=== PATIENT | male | born 1960 | race Caucasian/White ===

== ENCOUNTER 2017-04-27 08:56 | Day surgery (SDC) | payer BC ==
[~2017-04-27 08:56] MED LIST: Lactated Ringers 1,000 ML IV SCH; Sodium Chloride 0.9% 10 ML Syringe FLUSH PRN
[2017-04-27] MEDS ORDERED: fentaNYL 100 MCG/2 ML SDV ONE ×2 (09:50→09:53)
[2017-04-27] MEDS ORDERED: Midazolam 1 MG/ML 2 ML SDV ONE ×2 (09:50→09:53)
[2017-04-27] MEDS ORDERED: Propofol 200 MG/20 ML SDV ONE ×2 (09:51→09:53)
[2017-04-27] MEDS ORDERED: Lidocaine 2% 5 ML SDV ONE (09:53)
--- NOTE | 2017-04-27 09:53 | PCM.PN ---
- General Info Date of Service: 04/27/17 - Review of Systems Systems Review Comment:: 57-year-old male referred by Jhony Bruce for EGD and colonoscopy. He has a history of GERD long-term use of PPI agents. He also has a history of colon polyps and it has been more than 10 years since his last colonoscopy. I have discussed the proposed colonoscopy with the patient. He understands indications and risks and agrees to proceed accepting these risks. His recent history and physical is reviewed and there is no significant health-related changes since that time. - Patient Data Vitals - Most Recent: Last Vital Signs Temp 97.8 F 04/27/17 09:09 Pulse 113 H 04/27/17 09:09 Resp 20 04/27/17 09:09 BP 138/95 H 04/27/17 09:09 Pulse Ox 96 04/27/17 09:09 Weight - Most Recent: 95.254 kg Med Orders - Current: Current Medications Lactated Ringer's (Ringers, Lactated) 1,000 mls @ 125 mls/hr IV ASDIRECTED [facility] Last Admin: 04/27/17 09:18 Dose: 125 mls/hr Sodium Chloride (Saline Flush) 10 ml FLUSH ASDIRECTED PRN PRN Reason: Keep Vein Open - Problem List Review Problem List Initiated/Reviewed/Updated: Yes - Assessment Assessment:: GERD History of colon polyps - Plan Plan:: EGD and colonoscopy
--- NOTE | 2017-04-27 10:43 | PCM.OPNOTE ---
- General Post-Op/Procedure Note Date of Surgery/Procedure: 04/27/17 Operative Procedure(s): EGD with biopsy. Colonoscopy with polypectomy Findings: Minimal reflux esophagitis at GE junction Small rectal polyp Moderate left colon diverticulosis Pre Op Diagnosis: GERD. History of colon polyps Post-Op Diagnosis: GERD. Rectal polyp. Diverticulosis Anesthesia Technique: [facility] – [place], [place] Primary Surgeon: Brenton Delgado Pathology: Biopsies of GE junction and antrum Rectal polyp Output, Urine Amount: 0 EBL in mLs: 2 Complications: None Condition: Good Free Text/Narrative:: Intake & Output 04/26/17 04/27/17 04/27/17 22:59 06:59 14:59 Intake Total 700 Balance 700
--- NOTE | 2017-04-27 15:00 | OR ---
Date of Procedure: 04/27/2017 PREOPERATIVE DIAGNOSES: 1. Gastroesophageal reflux disease. 2. History of colon polyps. POSTOPERATIVE DIAGNOSES: 1. Gastroesophageal reflux disease. 2. Rectal polyp. 3. Left colon diverticulosis. OPERATIONS PERFORMED: Esophagogastroduodenoscopy with biopsy and colonoscopy with polypectomy. INDICATIONS FOR SURGERY: This 57-year-old male has a longstanding history of GERD like symptoms. He has been using a PPI agent for an extended period of time. He also has a known history of colon polyps, and it has been several years since his last colonoscopy. FINDINGS: On upper endoscopy, the patient has a mild degree of irregularity at the GE junction with minimal inflammation. The remainder of the esophagus, stomach, and the duodenum appeared normal. On colonoscopy, there is a 6 mm semipedunculated polyp noted in the rectum, 2 cm from the anal verge. The patient also has a moderate degree of diverticulosis which extends throughout the majority of the left colon, but does not appear to be acutely inflamed or otherwise complicated. The exam was, otherwise, normal. PROCEDURE IN DETAIL: The patient was taken to the operating room. He was given intravenous sedation, and with him in the left lateral decubitus position, the esophagus was intubated with the Olympus gastroscope. It was carefully advanced under direct visualization through the esophagus, stomach, and duodenum to the fourth portion. Careful examination of the duodenum was performed, and the scope was withdrawn back into the stomach where biopsies are taken randomly of the antrum to rule out H. pylori. Full examination including retroflexed examination of the fundus was performed. The GE junction was carefully examined. Biopsies at the GE junction were also taken. The esophagus was then examined as the scope was withdrawn, and attention was turned to colonoscopy. Digital rectal exam was performed showing no rectal masses. The Olympus colonoscope was inserted into the rectum, and retroflexed examination of the rectal canal was performed. The above-described rectal polyp was identified. This was removed with a cautery snare and retrieved into a polyp trap. The scope was then carefully advanced under direct visualization through the entire length of the colon until the cecum was reached. Cecal acquisition is confirmed by noting the normal internal cecal anatomy including the appendiceal orifice and ileocecal valve. The light was also noted to transilluminate the abdominal wall in the right lower quadrant. After carefully examining the cecum, the scope was slowly withdrawn sequentially re-examining the colonic segments until the entire colon and rectum have been fully examined. The scope was then removed, and the patient was taken from the operating room in satisfactory condition. ESTIMATED BLOOD LOSS: 2 mL. COMPLICATIONS: None. PROGNOSIS: Good. RONIT Delgado MD /[id number]
[2017-04-27 16:24] VITALS: BP 117/78
== END 2017-04-27 11:42 | disposition home or self-care (01) ==
LOC: LL.SDS 08:56
PROVIDERS: ATTEND Surgery
DX: Z12.11 Encounter for screening for malignant neoplasm of colon (principal); D12.8 Benign neoplasm of rectum; K29.50 Unspecified chronic gastritis without bleeding; I10 Essential (primary) hypertension; N40.0 Benign prostatic hyperplasia without lower urinary tract symptoms; K21.9 Gastro-esophageal reflux disease without esophagitis; Z86.010 Personal history of colon polyps; Z88.1 Allergy status to other antibiotic agents; Z88.8 Allergy status to other drugs, medicaments and biological substances; Z79.899 Other long term (current) drug therapy
CPT/HCPCS: J2250; J2704; J3010; J7120

== ENCOUNTER 2020-01-01 15:51 | Emergency (ER) | payer BC ==
[2020-01-01 16:00] VITALS: BP 158/71; PULSE 106
[2020-01-01] MEDS ORDERED: Sodium Chloride 0.9% 10 ML Syringe FLUSH PRN (16:23)
[2020-01-01] MEDS ORDERED: Famotidine 20 MG/2 ML SDV IVPUSH ONE (16:23)
--- NOTE | 2020-01-01 16:23 | EDM.PDOC ---
ED HPI GENERAL MEDICAL PROBLEM - General Chief Complaint: General Stated Complaint: chills, body aches, cough Time Seen by Provider: 01/01/20 16:05 Source of Information: Reports: Patient, Old Records ([facility] chart/EMR) History Limitations: Reports: No Limitations - History of Present Illness INITIAL COMMENTS - FREE TEXT/NARRATIVE: The patient drove himself to the emergency room via private automobile for evaluation of fever and chills with temperature of 99.8 degrees 1 hour prior to arrival. He has not taken any antipyretic medications today, however he has had Tylenol and ibuprofen during the last couple of days. Note 2-day history of similar symptoms and 3/10 diffuse arthralgias with additional mild dyspnea with exertion. 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 He has not gotten his influenza booster this season. Patient has had some mild anorexia during the last 3 days with a loose bowel movement this morn ing with similar bowel movements during the last couple of days. He has had some mild nasal drainage however no cough. The patient denies any chest pain/pressure, heart flutter, dizziness, orthostasis, orthopnea, diaphoresis, paresthesias, recent decreased exercise tolerance, or any other anginal-type symptoms. No recent history of abdominal pain, heartburn, nausea, diarrhea, melena, gross hematochezia, or any food intolerance, including fatty foods, etc.. He denies any gross hematuria, colic, or other UTI symptoms. No history of recent headaches, visual changes, diplopia, change in mental status, or other change in neurological status. Onset: Gradual Onset Date: 12/30/19 Duration: Constant, Getting Worse Location: Reports: Generalized Quality: Reports: Ache, Same as Previous Episode Severity: Mild Improves with: Reports: None Worsens with: Reports: None Context: Reports: Other (As above). Denies: Sick Contact, Trauma Associated Symptoms: Reports: Fever/Chills, Loss of Appetite, Shortness of Breath. Denies: Confusion, Chest Pain, Cough, cough w sputum, Diaphoresis, Headaches, Malaise, Nausea/Vomiting, Rash, Seizure, Syncope, Weakness Treatments MANAGER PROCUREMENT: Reports: Acetaminophen, NSAIDS bodyaches Pain Score (Numeric/FACES): 3 - Related Data Allergies Allergy/AdvReac Type Severity Reaction Status Date / Time hydrocodone Allergy Severe Nausea and Verified 01/01/20 16:01 Vomiting erythromycin base Allergy unknown Verified 01/01/20 16:01 Home Meds: Home Meds Omeprazole [Prilosec] 20 mg PO QAM 04/24/15 [History] Fluticasone Propionate [Flonase] 1 spray NASBOTH BID 05/14/15 [History] Chlorthalidone 25 mg PO DAILY PRN 04/26/17 [History] Ascorbate Calcium [Vitamin C] 500 mg PO DAILY 04/27/17 [History] Calcium Carbonate [Calcium] 500 mg PO DAILY 04/27/17 [History] Glucosam/Chond-MSM 2/C/D3/Bo [Dvufrsvxfn-Pablxdtbrye-GFX] 1 each PO DAILY 04/27/17 [History] Doxycycline [Vibramycin] 100 mg PO BID #20 cap 01/01/20 [Rx] guaiFENesin/Dextromethorphan [Mucinex Dm ER 600-30 mg Tablet] 1 each PO BID #20 tab.er.12h 01/01/20 [Rx] lisinopriL [Lisinopril] 10 mg PO DAILY 01/01/20 [History] Past Medical History HEENT History: Reports: Allergic Rhinitis, Sinusitis. Denies: Cataract, Glaucoma, Hard of Hearing, Impaired Vision, Macular Degeneration, Otitis Media Other HEENT History: He wears bifocals Cardiovascular History: Reports: Arrhythmia, High Cholesterol, Hypertension. Denies: Afib, Aneurysm, Blood Clots/VTE/DVT, CAD, Heart Failure, Heart Murmur, AL, PVD, Syncope Other Cardiovascular History: Dyslipidemia with secondary fatty liver, PACs, PVCs, short NC interval, and occasional nonspecific tachycardia Respiratory History: Reports: Bronchitis, Recurrent, COPD, Intubation, Previous, Other (See Below). Denies: Asthma, Intubation, Difficult, PE, Pneumonia, Recurrent, Pneumothorax, Sleep Apnea, TB Other Respiratory History: COPD by chest x-ray with previous history of tobacco use and no current medical therapy required Gastrointestinal History: Reports: Cholelithiasis, Colon Polyp, Diverticulosis, Fatty Liver, Gastritis, GERD. Denies: Chronic Constipation, Chronic Diarrhea, GI Bleed, Hiatal Hernia, Inflammatory Bowel Disease, Irritable Bowel Syndrome, Jaundice, PUD Other Gastrointestinal History: Bilateral inguinal hernias requiring surgeries as below, previously treated H. pylori infection, fatty liver secondary to dyslipidemia, esophagitis by EGD; history of tubular adenoma/rectal polyp at time of last colonoscopy on 04/27/2017 with previous recurrent hyperplastic colonic polyps, mild sigmoid colitis by colonoscopy, diverticulosis of the descending and sigmoid colon. Benign hepatic cysts Genitourinary History: Reports: BPH. Denies: Acute Renal Failure, Chronic Renal Insuffiency, Renal Calculus, Retention, Urinary, STD, Urinary Incontinence, UTI, Recurrent Other Genitourinary History: Benign left renal cysts by CT scan Musculoskeletal History: Reports: Arthritis, Fracture, Osteoarthritis, Other (See Below). Denies: Amputation, Back Pain, Chronic, Gout, Neck Pain, Chronic, RA, SLE Other Musculoskeletal History: Left ankle fracture in August 1999, left thumb fracture in about 1998 Neurological History: Reports: Headaches, Chronic, Other (See Below). Denies: Cerebral Aneurysms, CVA, Migraines, MS, Neuropathy, Peripheral, Parkinson's, Seizure, TIA Other Neuro History: Tension headaches Psychiatric History: Reports: Anxiety, Depression. Denies: Abuse, Victim of, ADD, ADHD, Addiction, Panic Attack, Psych Hospitalization(s), Suicide Attempt, Suicidal Ideation Endocrine/Metabolic History: Reports: Obesity/BMI 30+. Denies: Diabetes, Type I, Diabetes, Type II, Hypothyroidism, IDDM Hematologic History: Reports: None. Denies: Anemia, Blood Transfusion(s), Iron Deficiency Immunologic History: Reports: None. Denies: AIDS, HIV, SLE Oncologic (Cancer) History: Reports: None. Denies: Basal Cell Carcinoma, Hodgkin's Lymphoma, Leukemia, Lymphoma, Malignant Melanoma, Non-Hodgkin's Lymphoma, Squamous Cell Carcinoma Dermatologic History: Reports: None. Denies: Eczema, Psoriasis - Infectious Disease History Infectious Disease History: Reports: Chicken Pox, Helicobacter Pylori. Denies: C-Difficile, Measles, Meningitis, Mononucleosis, MRSA, Mumps, Pertussis (Whooping Cough), Rheumatic Fever, Rubella, Scarlet Fever, Shingles, TB, VRE - Past Surgical History Head Surgeries/Procedures: Reports: None HEENT Surgical History: Reports: Naso-Sinus Surgery, Oral Surgery, Other (See Below). Denies: Adenoidectomy, Eye Surgery, Laser Surgery, LASIK, Myringotomy w Tube(s), Tonsillectomy Other HEENT Surgeries/Procedures: [place] teeth extraction x4 at about age 24. Nasal septum deviation repair in about 2009. Complete upper teeth risk extraction at about age 24 with subsequent multiple lower teeth extractions. Cardiovascular Surgical History: Reports: None. Denies: Varicose Respiratory Surgical History: Reports: None. Denies: Lung Biopsies, Thoracent esis GI Surgical History: Reports: Colonoscopy, EGD, Hernia, Abdominal, Polypectomy, Other (See Below). Denies: Appendectomy Other GI Surgeries/Procedures: Bilateral inguinal hernia repair initially on the left side in March 1986 and then the right side on 05/14/2011 with mesh placement. Last colonoscopy and EGD on 04/27/2017 with findings as above. Previous EGD and colonoscopies on 05/19/2006 and 02/24/2003. Additional colonoscopy on 03/13/03. Laparoscopic cholecystectomy in 2007. Last excision of hyperplastic colonic polyps at 15 cm and 20 cm on 03/13/2011 with previous polyp excision on 05/19/2006 and tubular adenomatous rectal polyp removed on 04/27/2017. Male Surgical History: Reports: Circumcision, Vasectomy, Other (See Below) Other Male Surgeries/Procedures: Circumcision as an . Vasectomy in 1989. Endocrine Surgical History: Reports: None. Denies: Thyroid Biopsy Neurological Surgical History: Reports: None. Denies: C-Spine, Discectomy, Laminectomy, Lumbar Spine, Sacral Spine, Spinal Fusion, Thoracic Spine, Vertebr oplasty Musculoskeletal Surgical History: Reports: None. Denies: Arthroscopic Procedure, Carpal Tunnel, Ganglion Cyst, Joint Replacement, ORIF, Shoulder Surgery Oncologic Surgical History: Reports: None Dermatological Surgical History: Reports: None - Past Imaging History Past Imaging History: Reports: Cardiac Echo (12/17/2001), CAT Scan (CT scan of the facial bones on 04/13/2016 and 12/07/2011.. CT of the abdomen and pelvis on 04/24/2015 and 05/25/2010. CT of the chest in about 1998.), HIDA Scan (05/18/2011), Holter Monitor (01/01/2002), PFT (05/10/2002), Ultrasound (Abdominal ultrasound on 06/18/2002.) Social & Family History - Family History HEENT: Reports: None. Denies: Allergic Rhinitis, Glaucoma, Macular Degeneration, Retinal Detachment Cardiac: Reports: Afib, Arrhythmia, Bypass, CAD, High Cholesterol, Hypertension, AL, Pacemaker, Stent, Other (See Below). Denies: Aneurysm, Blood Clots/VTE/DVT, Heart Failure Other Cardiac Family History: Paternal grandmother with pacemaker, paternal uncle with AL and PTCA/stent in his 60s, brother and mother with hyperlipidemia, father with AL at age 85 with three-vessel CABG, maternal uncle with atrial fibrillation mother with hypertension Respiratory: Reports: COPD, Other (See Below). Denies: Asthma, PE, Pneumothorax, Sleep Apnea Other Respiratory Family Hisory: Maternal grandfather with COPD likely secondary to tobacco use GI: Reports: Diverticulitis, Diverticulosis, Other (See Below). Denies: Cholelithiasis, Colon Polyps, GI bleed, Hepatitis, Inflammatory Bowel Disease, PUD Other GI Family History: Maternal uncle with severe diverticulosis/diverticulitis : Reports: Renal Calculus, Other (See Below). Denies: Renal Disease/Insufficiency Other Family History: Father with urolithiasis OBGYN: Reports: None. Denies: Endometriosis, Fibroids, Recurrent Spontaneous Musculoskeletal: Reports: None. Denies: Gout, RA, SLE Neurological: Reports: CVA. Denies: Alzheimers Disease, Dementia, Parkinson's, Seizure, TIA Other Neurological Family History: Maternal grandmother with CVA in her 70s, paternal uncle with CVA in his 60s Psychiatric: Reports: Anxiety, Depression, Other (See Below). Denies: Abuse, Victim of, ADD, ADHD, Psych Hospitalization(s), PTSD, Suicide Attempt Other Psychiatric Family History: Mother and maternal uncle with depression Endocrine/Metabolic: Reports: Diabetes, type II, Other (See Below). Denies: Diabetes, Type I, Diabetes Mellitus, Type 3c, IDDM Other Endocrine/Metabolic Family History: Paternal uncles x2 with AODM Hematologic: Reports: None. Denies: Anemia Immunologic: Reports: None. Denies: AIDS, HIV, SLE Dermatologic: Reports: None. Denies: Eczema, Psoriasis Oncologic: Reports: Leukemia, Lung, Metastatic, Pancreatic, Prostate, Other (See Below). Denies: Colon, Esophageal, Lymphoma, Non-Hodgkin's Lymphoma, Skin Other Oncologic Family History: Maternal grandfather with fatal lung cancer in his 60s possibly secondary to tobacco use, paternal uncle with fatal metastatic pancreatic cancer in his 60s, paternal uncle with fatal metastatic prostate cancer in 60s,, paternal uncle with CLL is 80s - Tobacco Use Tobacco Use Status *Q: Former Tobacco User Tobacco Use Within Last Twelve Months: No Years of Tobacco use: 32 Packs/Tins Daily: 1.5 Packs/Tins Daily Comment: Discontinued tobacco use on 01/09/2011. Used Tobacco, but Quit: Yes Smoking Cessation Information Provided To Patient: No Second Hand Smoke Exposure: No Second Hand Smoke Education Provided: No - Caffeine Use Caffeine Use: Reports: Soda (2 sodas per month). Denies: Coffee, Energy Drinks, Tea - Alcohol Use Alcohol Use History: Yes Days Per Week of Alcohol Use: 2 Number of Drinks Per Day: 2 Number of Drinks Per Day Comment: Usually beer. No previous DWIs, problems with alcohol abuse, etc. Total Drinks Per Week: 4 Alcohol Use in Last Twelve Months: Yes - Recreational Drug Use Recreational Drug Use: No Drug Use in Last 12 Months: No Recreational Drug Type: Denies: Amphetamines (Speed), Cocaine, Heroin, Inhalants (Glues, Solvents, Aerosols), LSD (Acid), Marijuana/Hashish, Methamphetamine, Morphine, Oxycodone - Living Situation & Occupation Living situation: Reports: (1983, 3 children), with Family () Occupation: Employed ([employer]. 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 ED EXAM, GENERAL - Physical Exam Exam: See Below Exam Limited By: No Limitations General Appearance: Alert, WD/WN, No Apparent Distress Eye Exam: Bilateral Eye: EOMI, Normal Inspection (Patient is wearing glasses. No nystagmus), PERRL Ears: Normal External Exam, Normal Canal, Hearing Grossly Normal, Normal TMs Nose: Normal Mucosa, No Blood, Nasal Drainage, Clear Rhinorrhea Throat/Mouth: Normal Inspection, Normal Lips, Normal Gums, Normal Oropharynx, Normal Voice, No Airway Compromise. No: Normal Teeth (Complete upper dentures with multiple missing teeth lowers with no acute caries), Dysphagia, Perioral Cyanosis Head: Atraumatic, Normocephalic. No: Facial Swelling, Facial Tenderness, Sinus Tenderness Neck: Normal Inspection, Supple, Non-Tender, Full Range of Motion. No: Carotid Bruit, Lymphadenopathy (L), Lymphadenopathy (R), Thyromegaly Respiratory/Chest: No Respiratory Distress, No Accessory Muscle Use, Chest Non-Tender, Rales (Mild occasional diffuse bilateral rales). No: Rhonchi, Wheezing, Pleural Rub, Retractions Cardiovascular: Normal Peripheral Pulses, No Edema, No Gallop, No JVD, No Murmur, No Rub, Tachycardia (Regular rhythm with mild tachycardia secondary to fever). No: Gallop/S3, Gallop/S4, Extra Beats (None at time of my exam), Friction Rub Peripheral Pulses: 2+: Radial (L), Radial (R) GI/Abdominal: Normal Bowel Sounds, Soft, Non-Tender, No Organomegaly, No Distention, No Abnormal Bruit, No Mass, Other (Obese). No: Guarding (Male) Exam: Deferred Rectal (Males) Exam: Deferred Back Exam: Normal Inspection, Full Range of Motion. No: CVA Tenderness (L), CVA Tenderness (R), Muscle Spasm Extremities: Normal Inspection, Normal Range of Motion, Non-Tender, No Pedal Edema, Normal Capillary Refill. No: Anshul's Sign Neurological: Alert, Oriented, CN II-XII Intact, Normal Cognition, Normal Gait, No Motor/Sensory Deficits Psychiatric: Normal Affect, Normal Mood Skin Exam: Warm, Dry, Intact, Normal Color, No Rash. No: Diaphoretic, Ecchymosis, Petechiae, Wound/Incision Lymphatic: No Adenopathy #1 Interpretation EKG Date: 01/01/20 Time: 16:42 Rhythm: Other (Sinus tachycardia with occasional PACs and PVCs) Rate (Beats/Min): 106 [place]: Normal (Neutral cardiac access) P-Wave: Present QRS: Normal (0.07 seconds) ST-T: Normal (T wave inversion in lead III and V1) QT: Normal NC/PQ Interval: 0.12 seconds representing a stable short NC interval with no delta waves noted. Comparison: No Change (From previous EKG on 10/13/2015) EKG Interpretation Comments: 1. No acute ischemic changes 2. Sinus tachycardia 3. PACs and PVCs 4. Short NC interval Course - Vital Signs Last Recorded V/S: Last Vital Signs Temp 37.4 C 01/01/20 15:54 Pulse 106 H 01/01/20 15:54 Resp 20 01/01/20 15:54 BP 158/71 H 01/01/20 15:54 Pulse Ox 96 01/01/20 15:54 Vital Signs - 24 hr 01/01/20 15:54 Temperature [ 37.4 C Oral] Pulse, 106 H Peripheral [ Right Pulse Oximetry] Respiratory 20 Rate Blood Pressure 158/71 H [Left Upper Arm ] O2 Sat by Pulse 96 Oximetry - Orders/Labs/Meds Orders: Active Orders 24 hr Category Date Time Status Chest 1V Frontal [CR] Stat Exams 01/01/20 16:23 Taken Isolation [COMM] Routine Oth 01/01/20 16:25 Active Obtain Past Medical Record [OM.PC] Urgent Oth 01/01/20 16:23 Active Peripheral IV Insertion Adult [OM.PC] Stat Oth 01/01/20 16:23 Ordered Resuscitation Status Stat Resus Stat 01/01/20 16:23 Ordered Labs: Laboratory Tests 01/01/20 01/01/20 01/01/20 Range/Units 16:39 16:39 16:39 WBC 3.2 L (4.0-10.2) K/uL RBC 5.46 H (4.33-5.41) M/uL Hgb 16.1 D (13.1-16.8) g/dL Hct 47.7 (39.0-49.0) % MCV 87.4 (84.0-98.0) fL MCH 29.5 (28.2-33.3) pg MCHC 33.8 (31.7-36.0) g/dL RDW 13.3 (11.2-14.1) % Plt Count 132 L (150-350) K/uL Neut % (Auto) 69.7 (45.0-80.0) % Lymph % (Auto) 18.1 (10.0-50.0) % Hanson % (Auto) 11.6 (2.0-14.0) % Eos % (Auto) 0.3 (0.0-5.0) % Baso % (Auto) 0.3 (0.0-2.0) % Neut # (Auto) 2.23 (1.40-7.00) K/uL Lymph # (Auto) 0.58 (0.50-3.50) K/uL [place] # (Auto) 0.37 (0.00-1.00) K/uL Eos # (Auto) 0.01 (0.00-0.50) K/uL Baso # (Auto) 0.01 (0.00-0.20) K/uL PT 9.9 (9.5-12.0) SEC INR 1.0 APTT 28.0 (24.5-32.8) SEC D-Dimer, Quantitative < 100 (0-400) ng/mL Sodium (136-145) mmol/L Potassium (3.5-5.1) mmol/L Chloride (98-107) mmol/L Carbon Dioxide (21.0-32.0) mmol/L BUN (7-18) mg/dL Creatinine (0.51-1.17) mg/dL Est Cr Clr Drug Dosing mL/min Estimated GFR (MDRD) mL/min Glucose (74-106) mg/dL Lactic Acid (0.4-2.0) mmol/L Uric Acid (2.6-7.2) mg/dL Calcium (8.5-10.1) mg/dL Magnesium (1.8-2.4) mg/dL Total Bilirubin (0.2-1.0) mg/dL AST (15-37) U/L ALT (12-78) U/L Alkaline Phosphatase (46-116) IU/L Creatine Kinase (26-308) U/L Creatine Kinase Index (0.0-2.5) % CK-MB (CK-2) (0.00-3.60) ng/mL Troponin I (0.000-0.056) ng/mL NT-Pro-B Natriuret Pep (0-125) pg/mL Total Protein (6.4-8.2) g/dL Albumin (3.4-5.0) g/dL TSH, Ultra Sensitive (0.358-3.740) mIU/mL 01/01/20 01/01/20 Range/Units 16:39 16:39 WBC (4.0-10.2) K/uL RBC (4.33-5.41) M/uL Hgb (13.1-16.8) g/dL Hct (39.0-49.0) % MCV (84.0-98.0) fL MCH (28.2-33.3) pg MCHC (31.7-36.0) g/dL RDW (11.2-14.1) % Plt Count (150-350) K/uL Neut % (Auto) (45.0-80.0) % Lymph % (Auto) (10.0-50.0) % Hans[place] % (Auto) (2.0-14.0) % Eos % (Auto) (0.0-5.0) % Baso % (Auto) (0.0-2.0) % Neut # (Auto) (1.40-7.00) K/uL Lymph # (Auto) (0.50-3.50) K/uL [place] # (Auto) (0.00-1.00) K/uL Eos # (Auto) (0.00-0.50) K/uL Baso # (Auto) (0.00-0.20) K/uL PT (9.5-12.0) SEC INR APTT (24.5-32.8) SEC D-Dimer, Quantitative (0-400) ng/mL Sodium 136 (136-145) mmol/L Potassium 4.0 (3.5-5.1) mmol/L Chloride 100 (98-107) mmol/L Carbon Dioxide 25.3 (21.0-32.0) mmol/L BUN 17 (7-18) mg/dL Creatinine 0.89 (0.51-1.17) mg/dL Est Cr Clr Drug Dosing 91.57 mL/min Estimated GFR (MDRD) > 60 mL/min Glucose 90 (74-106) mg/dL Lactic Acid 1.5 (0.4-2.0) mmol/L Uric Acid 6.4 (2.6-7.2) mg/dL Calcium 8.3 L (8.5-10.1) mg/dL Magnesium 2.0 (1.8-2.4) mg/dL Total Bilirubin 0.5 (0.2-1.0) mg/dL AST 61 H (15-37) U/L ALT 62 (12-78) U/L Alkaline Phosphatase 97 (46-116) IU/L Creatine Kinase 78 (26-308) U/L Creatine Kinase Index 0.6 (0.0-2.5) % CK-MB (CK-2) 0.50 (0.00-3.60) ng/mL Troponin I 0.000 (0.000-0.056) ng/mL NT-Pro-B Natriuret Pep 11 (0-125) pg/mL Total Protein 7.3 (6.4-8.2) g/dL Albumin 3.7 (3.4-5.0) g/dL TSH, Ultra Sensitive 1.288 (0.358-3.740) mIU/mL Microbiology 01/01/20 16:45 Influenza Type A Antigen Screen - Final Nasal, Unspecified NEGATIVE INFLUENZA A VIRUS AG REFERENCE RANGE: NEGATIVE Influenza Type B Antigen Screen - Final NEGATIVE INFLUENZA B VIRUS AG REFERENCE RANGE: NEGATIVE Meds: Medications Discontinued Medications Generic Name Dose Route Start Last Admin Trade Name Freq PRN Reason Stop Dose Admin Doxycycline Monohydrate 100 mg 01/01/20 17:49 01/01/20 18:33 Doxycycline Monohydrate PO 01/01/20 17:50 100 mg ONETIME ONE Administration Famotidine 40 mg 01/01/20 16:23 01/01/20 16:49 Pepcid IVPUSH 01/01/20 16:24 40 mg ONETIME ONE Administration Sodium Chloride 10 ml 01/01/20 16:23 01/01/20 16:49 Saline Flush FLUSH 10 ml ASDIRECTED PRN Administration Keep Vein Open - Radiology Interpretation Free Text/Narrative:: Chest x-ray, portable, shows evidence of mild borderline bilateral pulmonary infiltrates right greater than left with some atelectasis versus infiltrate in the left lower lobe. No pneumothorax, cardiomegaly, CHF, etc. Departure - Departure Time of Disposition: 18:50 Disposition: Home, Self-Care 01 Condition: Good Clinical Impression: Dyslipidemia, Mixed anxiety depressive disorder, Peptic reflux disease Pneumonia Qualifiers: Pneumonia type: due to unspecified organism Laterality: bilateral Lung location: unspecified part of lung Qualified Code(s): J18.9 - Pneumonia, unspecified organism COPD (chronic obstructive pulmonary disease) Qualifiers: COPD type: unspecified COPD Qualified Code(s): J44.9 - Chronic obstructive pulmonary disease, unspecified Hypertension Qualifiers: Hypertension type: essential hypertension Qualified Code(s): I10 - Essential (primary) hypertension - Discharge Information *PRESCRIPTION DRUG MONITORING PROGRAM REVIEWED*: Not Applicable *COPY OF PRESCRIPTION DRUG MONITORING REPORT IN PATIENT SKYE: Not Applicable Prescriptions: guaiFENesin/Dextromethorphan [Mucinex Dm ER 600-30 mg Tablet] 1 each PO BID #20 tab.er.12h Doxycycline [Vibramycin] 100 mg PO BID #20 cap Instructions: Community-Acquired Pneumonia, Adult, [id number] Referrals: PCP,None [Primary Care Provider] - Forms: ED Department Discharge Additional Instructions: 1. Followup with your regular provider in 10-14 days as directed for reevaluation and recommended repeat CBC, comprehensive metabolic panel, and chest x-ray. Bring these discharge instructions with you to that visit. 2. Tylenol 650 mg by mouth every 4 hours and/or OTC ibuprofen 2-3 tabs by mouth every 6 hours with food as directed./needed. You may stagger these medications for 48-72 hours only, which essentially means that you are receiving a pain medication about every 2 hours. 3. Hygiene issues as discussed 4. Maintain recommended quarantine until you have been notified of today's COVID-19 test results as discussed with return to previous social distancing, use of masks, etc., thereafter as per current recommended CDC guidelines 5. Work excuse- See Form 6. Immediately after this visit verify that your cellular telephone's voicemail has been activated and is empty. Also verify that your home telephone's answering machine is operating properly and has space to receive messages. Note that it is sometimes necessary for us to be able to contact you at a later date to discuss your medical care. 7. Please remember that we are ALWAYS here for you and want to answer any questions you may have. Feel free to call the hospital any time and we call you back CLEMENTE. 8. Obtain your influenza booster CLEMENTE once current symptoms improve and/your you are afebrile. Sepsis Event Note (ED) - Evaluation Sepsis Screening Result: Possible Sepsis Risk - Focused Exam Vital Signs: Vital Signs Temp Pulse Resp BP Pulse Ox 01/01/20 15:54 37.4 C 106 H 20 158/71 H 96 - Problem List & Annotations (1) Pneumonia SNOMED Code(s): 888497135 Code(s): J18.9 - PNEUMONIA, UNSPECIFIED ORGANISM Status: Acute Priority: High Onset Date: ~12/30/19 Annotation/Comment:: Patient apparently had a COVID-19 test at [facility] in [place] 2 days ago with results still pending. He did not wish to repeat this evaluation today. Continue quarantine and isolation as previously directed and as per discharge instructions. Additional work excuse was provided to the patient. Hygiene precautions, etc. were extensively discussed. Doxycycline initiated in the emergency room seconda ry to possible COVID-19 infection. Close follow-up by his regular provider. Influenza booster also advisable as per discharge instructions. Lactic acid is normal with mild leukopenia today likely secondary to his infection. No clinical evidence of sepsis. Qualifiers: Pneumonia type: due to unspecified organism Laterality: bilateral Lung location: unspecified part of lung Qualified Code(s): J18.9 - Pneumonia, unspecified organism (2) COPD (chronic obstructive pulmonary disease) SNOMED Code(s): 54022421 Code(s): J44.9 - CHRONIC OBSTRUCTIVE PULMONARY DISEASE, UNSPECIFIED Status: Acute Priority: Medium Annotation/Comment:: Patient was once again congratulated about his long-term tobacco cessation. No medical therapy at this time, however continue to observe closely through his regular providers with repeat PFTs depending on his clinical course. No significant exacerbation from his current infection at this time. Qualifiers: COPD type: unspecified COPD Qualified Code(s): J44.9 - Chronic obstructive pulmonary disease, unspecified (3) Hypertension SNOMED Code(s): 01527571 Code(s): I10 - ESSENTIAL (PRIMARY) HYPERTENSION Status: Acute Priority: High Annotation/Comment:: Blood pressure somewhat elevated in the emergency room possibly secondary to his current illness. Continue to observe closely by his regular providers. Patient apparently had a previous nonspecific intolerance to beta blockers, including "feeling funny" on this medication in the distant past. He did tolerate low-dose IV metoprolol in the emergency room in the past, however. Qualifiers: Hypertension type: essential hypertension Qualified Code(s): I10 - Essential (primary) hypertension (4) Dyslipidemia SNOMED Code(s): 013557553 Code(s): E78.5 - HYPERLIPIDEMIA, UNSPECIFIED Status: Chronic Priority: Medium Annotation/Comment:: Patient with a history of significant dyslipidemia with no current medical therapy. Strict low-fat, low-cholesterol diet with weight loss in moderation recommended. Close follow-up by his regular provider. Note mild LFTs elevation likely secondary to his fatty liver. (5) Mixed anxiety depressive disorder SNOMED Code(s): 033712696 Code(s): F41.8 - OTHER SPECIFIED ANXIETY DISORDERS Status: Chronic Priority: Medium Annotation/Comment:: Currently stable by patient history without medical therapy with this to be continued to be watched closely by his regular provider (6) Peptic reflux disease SNOMED Code(s): 660414485 Code(s): K21.9 - GASTRO-ESOPHAGEAL REFLUX DISEASE WITHOUT ESOPHAGITIS Status: Chronic Priority: Medium Annotation/Comment:: Stable by patient history. - Problem List Review Problem List Initiated/Reviewed/Updated: Yes - My Orders Last 24 Hours: My Active Orders 01/01/20 16:23 Chest 1V Frontal [CR] Stat Obtain Past Medical Record [OM.PC] Urgent Peripheral IV Insertion Adult [OM.PC] Stat Resuscitation Status Stat 01/01/20 16:25 Isolation [COMM] Routine - Assessment/Plan Last 24 Hours: My Active Orders 01/01/20 16:23 Chest 1V Frontal [CR] Stat Obtain Past Medical Record [OM.PC] Urgent Peripheral IV Insertion Adult [OM.PC] Stat Resuscitation Status Stat 01/01/20 16:25 Isolation [COMM] Routine Assessment:: As above. Plan: As above. Extensive precautions were given to the patient, who is in agreement with the treatment plan. See Patient Instructions for further treatment and plan.
[2020-01-01 17:16] LABS: CHLORIDE,CL 100 mmol/L (98-107); SODIUM,NA 136 mmol/L (136-145)
[2020-01-01] MEDS ORDERED: Doxycycline Monohydrate 100 MG Cap PO ONE (17:49)
== END 2020-01-01 18:40 | disposition home or self-care (01) ==
LOC: LL.ED 15:51
DX: J18.9 Pneumonia, unspecified organism (principal); I10 Essential (primary) hypertension; J44.9 Chronic obstructive pulmonary disease, unspecified; E78.5 Hyperlipidemia, unspecified; F41.8 Other specified anxiety disorders; K21.9 Gastro-esophageal reflux disease without esophagitis; Z88.5 Allergy status to narcotic agent; Z88.1 Allergy status to other antibiotic agents; Z79.899 Other long term (current) drug therapy
CPT/HCPCS: 36415; 71045; 80053; 82550; 82553; 83605; 83735; 83880; 84443; 84484; 84550; 85025; 85379; 85610; 85730; 87804; 93005; 96374; 99285-25; A9270-GY; J3490

== ENCOUNTER 2023-07-13 11:34 | Day surgery (SDC) | payer BC ==
[~2023-07-13 11:34] MED LIST changes: -Lactated Ringers 1,000 ML IV SCH; +Midazolam 1 MG/ML 2 ML SDV ONE; +Propofol 200 MG/20 ML SDV ONE; -Sodium Chloride 0.9% 10 ML Syringe FLUSH PRN
[2023-07-13] MEDS ORDERED: Sodium Chloride 0.9% 10 ML Syringe FLUSH PRN (11:52)
[2023-07-13] MEDS: Lactated Ringers 1,000 ML IV SCH (12:08)
[2023-07-13 17:44] VITALS: BP 137/83; PULSE 85
== END 2023-07-13 14:50 ==
LOC: LL.SDS 11:34
PROVIDERS: ATTEND Surgery
DX: Z12.11 Encounter for screening for malignant neoplasm of colon (principal); D12.0 Benign neoplasm of cecum; D12.2 Benign neoplasm of ascending colon; K57.30 Diverticulosis of large intestine without perforation or abscess without bleeding; I10 Essential (primary) hypertension; J44.9 Chronic obstructive pulmonary disease, unspecified; K21.9 Gastro-esophageal reflux disease without esophagitis; Z79.899 Other long term (current) drug therapy; Z88.5 Allergy status to narcotic agent; Z88.1 Allergy status to other antibiotic agents; Z86.010 Personal history of colon polyps
CPT/HCPCS: 00811; J2250; J2704; J7120